=== PATIENT | female | born 1975 | race Hispanic/Latino ===

== ENCOUNTER 2019-04-13 09:30 | Outpatient (RCR) | payer OTHER, SELFPAY ==
--- NOTE | 2019-03-18 09:28 | ST.OPTN ---
Care Team Visit Care Team Role Provider Type Rigoberto Dodge MD Attending Provider Non-Staff Address: [address] [place] [address], [id number] RN HEMATOLOGY Treatment Note RN HEMATOLOGY Treatment Note Start: 04/16/18 16:50 Freq: Status: Active Protocol: Document 03/17/19 09:10 NAKIA (Rec: 03/17/19 09:28 NAKIA [email or web address]) Speech Pathology Treatment Note Session Time Visit Start Time 08:35 Visit Stop Time 09:27 Total Visit Minutes 52 Visit Information Visit Number 08/13 Plan of Care Dates 12/10/18 - 03/04/19 Insurance Information Self-Insured. L&I Claim # [id number] Setting Treatment Setting Outpatient Care Visit Type Note Type Progress Note Next Note Type Next Note Type Treatment Note General Information General Information 42-yr-old female suffered a concussion/TBI on 01/07/17 when she hit her head on the underside of a counter at work when standing up. The pt noticed swelling, headache and tingling of her extremities within 4 hours of hitting her head and went to [facility]. Imaging revealed no skull fracture or cranial bleeding. The pt has not received Speech Therapy services before now. She did undergo neurocognitive evaluation via [employer] as part of the pt's L&I Claim. Records have been requested. The pt c/o memory problems, word finding difficulties and reduced expressive languae skills especially with fatigue, slowed processing skills, as well as fatigue and chronic headache/pain. Prior to injury , the pt worked 40+ hours at the [employer] at [employer]. She is now only able to work only 20 hrs/wk (4 hrs/day) secondary to symptoms from injury. Subjective Identification Type Name Date of Other Identification Reconciled With Intake Sheet Observations/Patient Presentation Edna reported improvement in her memory and math skills and stated that she still struggles to have enough physical and mental energy to last the day. This is concerning to her as she is trying to increase her work day to 8 hrs. She also expressed concern and disappointment that she may not be able to achieve her goal of returning to school and earning a PhD. She became tearful as she expressed her concerns and her frustration with others telling her she is doing fine when she is has not yet reached her PLOF. 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 The pt will complete math tasks of moderate complexity to increase her ability to perform work-related and personal financial tasks. IMPROVING - CONTINUE GOAL 2. The pt will name 4 internal memory strategies to demonstrate understanding skilled education. GOAL MET 3. The pt will identify 3 compensatory strategies for use in functional tasks (e.g., maintain stamina, attention, recall, etc.) to demonstrate understanding of skilled education. GOAL MET 4. Using memory strategies, the pt will recall details about people in her functional environment (e.g., employees) with 90% accuracy. IMPROVING - CONTINUE GOAL 5. Pt will complete alternating and divided attention tasks of moderate complexity with 80% accuracy. IMPROVING - CONTINUE GOAL 6. Pt will complete visuospatial tasks of moderate complexity with 80% accuracy. IMPROVING - CONTINUE GOAL 7. NEW GOAL: Pt will verbalize understanding of SMART strategy for setting realistic goals to increase independence in redeveloping/ accomplishing personal goals in the presence of TBI. Tomographic Tech Goals 1. The pt will demonstrate immediate and delayed recall of 4-item lists/instructions with 90% accuracy to improve memory for functional tasks. IMPROVING - CONTINUE GOAL 2. The pt will employ compensatory strategies in her work environment in 3 self- chosen tasks with 80% accuracy , as measured by pt report and clinician judgment, to improve ability to complete employment responsibilities. GOAL MET 3. The pt will demonstrate expressive, receptive, and cognitive communication skills WFL to return to full-time employment. IMPROVING - CONTINUE GOAL 4. NEW GOAL: The pt will develop 3 personal/ professional goals using SMART strategy to increase independence of setting and attaining personal goals in the presence of TBI. Treatment Activities Provided education and counseling RE common standardized measurements of typical or normal functioning vs the pt's PLOF and personal goals; acceptance of factors around brain injury that are outside her control; strategies in identifying tangible realistic tasks that are within her control; and strategies for conserving energy to increase endurance throughout the work day. Edna identified 2 strategies that she does employ and 2 that she could employ to conserve energy and add small tasks into her day to slowly increase endurance and progress toward goals of returning to an 8-hr work day. Recommended resources (e.g., [employer] [place], university guidance counselors and ADA departments , etc.) for the pt to consult related to pursuing education with a brain injury. Initiated training of SMART goal- setting strategy. Edna identified tangible, realistic steps she could take right now (i.e., gathering information, applying for positions, etc.) to work toward and/or refine her professional and educational goals. Assessment Patient Response to Treatment Excellent Rehab Potential Excellent Impairments Identified Attention Cognitive-Linguistic Skills Expressive Language Memory - Short Term Memory - Working Problem Solving Receptive Language Additional Impairments Identified Compensatory strategies analysis; HEP review & modification as needed Progress Towards Goals Good Progress Assessment of Overall Progress Improving Assessment of Improvement Edna continues to make progress in treatment with good carryover to functional tasks. She also continues to be significantly impacted by physical and mental fatigue as she works hard to employ strategies learned in treatment. She is emotionally impacted by consequences of TBI, both within her own skillset and other people's interpretations and expectations of her abilities. Today she exhibited improved understanding of topics about which she was counseled and educated, as demonstrated by her ability to idenfify tangible steps and strategies she can take to further develop and progress toward personal goals. At start of the session she was tearful; at the end of the session she expressed excitement and motivation about her future, demonstrating improvement as a result of treatment. Continued skilled intervention is medically necessary to further progress the pt's cognitive communication skills and further train strategies in conserving energy and setting and achieving realistic steps toward returning to PLOF and full- time employment. Reviewed with Patient Goals Progress Being Made Home Exercise Program Patient/Caregiver Understanding Excellent Plan Amount of Therapy Recommended 1-2 Months Frequency of Treatment Twice a Week Length of Session 45 Minutes Treatment Emphasis Next Session Cont number recall with added distractors Therapeutic Contents Client Education Cognitive-Linguistic Training Home Exercise Program Provided Patient/Caregiver Instruction Home Exercise Program Plan of Care Questions/Concerns Therapy Recommendations Continue with Current Program
--- NOTE | 2019-03-18 15:55 | ST.OPTN ---
Care Team Visit Care Team Role Provider Type Rigoberto Dodge MD Attending Provider Non-Staff Address: [address] [place] [address], [id number] MIDDLE SCHOOL GUIDANCE COUNSELOR Treatment Note MIDDLE SCHOOL GUIDANCE COUNSELOR Treatment Note Start: 04/16/18 16:50 Freq: Status: Active Protocol: Document 03/17/19 09:10 NAKIA (Rec: 03/17/19 09:28 NAKIA [email or web address]) Speech Pathology Treatment Note Session Time Visit Start Time 08:35 Visit Stop Time 09:27 Total Visit Minutes 52 Visit Information Visit Number 08/13 Plan of Care Dates 03/17/19 - 06/10/19 Insurance Information Self-Insured. L&I Claim # [id number] Setting Treatment Setting Outpatient Care Visit Type Note Type Progress Note Next Note Type Next Note Type Treatment Note General Information General Information 42-yr-old female suffered a concussion/TBI on 01/07/17 when she hit her head on the underside of a counter at work when standing up. The pt noticed swelling, headache and tingling of her extremities within 4 hours of hitting her head and went to [facility]. Imaging revealed no skull fracture or cranial bleeding. The pt has not received Speech Therapy services before now. She did undergo neurocognitive evaluation via [employer] as part of the pt's L&I Claim. Records have been requested. The pt c/o memory problems, word finding difficulties and reduced expressive languae skills especially with fatigue, slowed processing skills, as well as fatigue and chronic headache/pain. Prior to injury , the pt worked 40+ hours at the [employer] at [employer]. She is now only able to work only 20 hrs/wk (4 hrs/day) secondary to symptoms from injury. Subjective Identification Type Name Date of Other Identification Reconciled With Intake Sheet Observations/Patient Presentation Edna reported improvement in her memory and math skills and stated that she still struggles to have enough physical and mental energy to last the day. This is concerning to her as she is trying to increase her work day to 8 hrs. She also expressed concern and disappointment that she may not be able to achieve her goal of returning to school and earning a PhD. She became tearful as she expressed her concerns and her frustration with others telling her she is doing fine when she is has not yet reached her PLOF. 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 The pt will complete math tasks of moderate complexity to increase her ability to perform work-related and personal financial tasks. IMPROVING - CONTINUE GOAL 2. The pt will name 4 internal memory strategies to demonstrate understanding skilled education. GOAL MET 3. The pt will identify 3 compensatory strategies for use in functional tasks (e.g., maintain stamina, attention, recall, etc.) to demonstrate understanding of skilled education. GOAL MET 4. Using memory strategies, the pt will recall details about people in her functional environment (e.g., employees) with 90% accuracy. IMPROVING - CONTINUE GOAL 5. Pt will complete alternating and divided attention tasks of moderate complexity with 80% accuracy. IMPROVING - CONTINUE GOAL 6. Pt will complete visuospatial tasks of moderate complexity with 80% accuracy. IMPROVING - CONTINUE GOAL 7. NEW GOAL: Pt will verbalize understanding of SMART strategy for setting realistic goals to increase independence in redeveloping/ accomplishing personal goals in the presence of TBI. Obstetrics Gyn Goals 1. The pt will demonstrate immediate and delayed recall of 4-item lists/instructions with 90% accuracy to improve memory for functional tasks. IMPROVING - CONTINUE GOAL 2. The pt will employ compensatory strategies in her work environment in 3 self- chosen tasks with 80% accuracy , as measured by pt report and clinician judgment, to improve ability to complete employment responsibilities. GOAL MET 3. The pt will demonstrate expressive, receptive, and cognitive communication skills WFL to return to full-time employment. IMPROVING - CONTINUE GOAL 4. NEW GOAL: The pt will develop 3 personal/ professional goals using SMART strategy to increase independence of setting and attaining personal goals in the presence of TBI. Treatment Activities Provided education and counseling RE common standardized measurements of typical or normal functioning vs the pt's PLOF and personal goals; acceptance of factors around brain injury that are outside her control; strategies in identifying tangible realistic tasks that are within her control; and strategies for conserving energy to increase endurance throughout the work day. Edna identified 2 strategies that she does employ and 2 that she could employ to conserve energy and add small tasks into her day to slowly increase endurance and progress toward goals of returning to an 8-hr work day. Recommended resources (e.g., [employer] [place], university guidance counselors and ADA departments , etc.) for the pt to consult related to pursuing education with a brain injury. Initiated training of SMART goal- setting strategy. Edna identified tangible, realistic steps she could take right now (i.e., gathering information, applying for positions, etc.) to work toward and/or refine her professional and educational goals. Assessment Patient Response to Treatment Excellent Rehab Potential Excellent Impairments Identified Attention Cognitive-Linguistic Skills Expressive Language Memory - Short Term Memory - Working Problem Solving Receptive Language Additional Impairments Identified Compensatory strategies analysis; HEP review & modification as needed Progress Towards Goals Good Progress Assessment of Overall Progress Improving Assessment of Improvement Edna continues to make progress in treatment with good carryover to functional tasks. She also continues to be significantly impacted by physical and mental fatigue as she works hard to employ strategies learned in treatment. She is emotionally impacted by consequences of TBI, both within her own skillset and other people's interpretations and expectations of her abilities. Today she exhibited improved understanding of topics about which she was counseled and educated, as demonstrated by her ability to idenfify tangible steps and strategies she can take to further develop and progress toward personal goals. At start of the session she was tearful; at the end of the session she expressed excitement and motivation about her future, demonstrating improvement as a result of treatment. Continued skilled intervention is medically necessary to further progress the pt's cognitive communication skills and further train strategies in conserving energy and setting and achieving realistic steps toward returning to PLOF and full- time employment. Reviewed with Patient Goals Progress Being Made Home Exercise Program Patient/Caregiver Understanding Excellent Plan Amount of Therapy Recommended 1-2 Months Frequency of Treatment Twice a Week Length of Session 45 Minutes Treatment Emphasis Next Session Cont number recall with added distractors Therapeutic Contents Client Education Cognitive-Linguistic Training Home Exercise Program Provided Patient/Caregiver Instruction Home Exercise Program Plan of Care Questions/Concerns Therapy Recommendations Continue with Current Program
--- NOTE | 2019-04-13 11:21 | ST.OPTN ---
Care Team Visit Care Team Role Provider Type Rigoberto Dodge MD Attending Provider Non-Staff Address: [address] [place] [address], [id number] STORE PLANNER Treatment Note STORE PLANNER Treatment Note Start: 04/16/18 16:50 Freq: Status: Active Protocol: Document 04/13/19 11:09 NAKIA (Rec: 04/13/19 11:21 NAKIA [email or web address]) Speech Pathology Treatment Note Session Time Visit Start Time 09:43 Visit Stop Time 10:17 Total Visit Minutes 34 Visit Information Visit Number 2 Plan of Care Dates 03/17/19 - 06/10/19 Insurance Information Self-Insured. L&I Claim # [id number] Setting Treatment Setting Outpatient Care Visit Type Note Type Progress Note Next Note Type Next Note Type Treatment Note General Information General Information 42-yr-old female suffered a concussion/TBI on 01/07/17 when she hit her head on the underside of a counter at work when standing up. The pt noticed swelling, headache and tingling of her extremities within 4 hours of hitting her head and went to [facility]. Imaging revealed no skull fracture or cranial bleeding. The pt has not received Speech Therapy services before now. She did undergo neurocognitive evaluation via [employer] as part of the pt's L&I Claim. Records have been requested. The pt c/o memory problems, word finding difficulties and reduced expressive languae skills especially with fatigue, slowed processing skills, as well as fatigue and chronic headache/pain. Prior to injury , the pt worked 40+ hours at the [employer] at [employer]. She is now only able to work only 20 hrs/wk (4 hrs/day) secondary to symptoms from injury. 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 Once arrived, she reported having met with a new Neurologist whose name she did not recall and who recommended she not advance work hours beyond 6/ day and recommended (re) evaluation for disability benefits. 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 The pt will complete math tasks of moderate complexity to increase her ability to perform work-related and personal financial tasks. IMPROVING - CONTINUE GOAL 2. The pt will name 4 internal memory strategies to demonstrate understanding skilled education. GOAL MET 3. The pt will identify 3 compensatory strategies for use in functional tasks (e.g., maintain stamina, attention, recall, etc.) to demonstrate understanding of skilled education. GOAL MET 4. Using memory strategies, the pt will recall details about people in her functional environment (e.g., employees) with 90% accuracy. IMPROVING - CONTINUE GOAL 5. Pt will complete alternating and divided attention tasks of moderate complexity with 80% accuracy. IMPROVING - CONTINUE GOAL 6. Pt will complete visuospatial tasks of moderate complexity with 80% accuracy. IMPROVING - CONTINUE GOAL 7. NEW GOAL: Pt will verbalize understanding of SMART strategy for setting realistic goals to increase independence in redeveloping/ accomplishing personal goals in the presence of TBI. Assisted Goals 1. The pt will demonstrate immediate and delayed recall of 4-item lists/instructions with 90% accuracy to improve memory for functional tasks. IMPROVING - CONTINUE GOAL 2. The pt will employ compensatory strategies in her work environment in 3 self- chosen tasks with 80% accuracy , as measured by pt report and clinician judgment, to improve ability to complete employment responsibilities. GOAL MET 3. The pt will demonstrate expressive, receptive, and cognitive communication skills WFL to return to full-time employment. IMPROVING - CONTINUE GOAL 4. NEW GOAL: The pt will develop 3 personal/ professional goals using SMART strategy to increase independence of setting and attaining personal goals in the presence of TBI. Treatment Activities Educated pt on current goals/ POC. Pt agreeable to working with another therapist in 2 wks while this STORE PLANNER is out of the clinic. Discussed discharge plan as pt 's benefits are drawing to a close at the end of the month. Introduced SMART goal development technique. She was familiar with this acronym and identified/explained each component successfully. Edna then identified 2 areas of functional abilities (reading comprehension/speed and physical fitness) that have not yet returned to PLOF and wrote 2 SMART goals, one for each target. Goals met standards of SMART technique. Agreed she will initiate action on each target and report progress at next session and will bring to next session at least one more SMART goal targeting professional and/or education pursuits. Assessment Patient Response to Treatment Excellent Rehab Potential Excellent Impairments Identified Attention Cognitive-Linguistic Skills Expressive Language Memory - Short Term Memory - Working Problem Solving Receptive Language Additional Impairments Identified Compensatory strategies analysis; HEP review & modification as needed Progress Towards Goals Good Progress Assessment of Overall Progress Improving Assessment of Improvement Edna is already knowledgable to SMART goal development technique and demonstrated ability to set goals according to each SMART component. She verbalized understanding of the importance of such a goal development skill in order to transition from skilled intervention to greater independence for continued rehabilitation progress. Edna continues to struggle with short-term memory and attention skills, which will continue to be targeted in tx and in HEP. Reviewed with Patient Goals Progress Being Made Home Exercise Program Patient/Caregiver Understanding Excellent Plan Amount of Therapy Recommended 1-2 Months Frequency of Treatment Twice a Week Length of Session 45 Minutes Treatment Emphasis Next Session Cont number recall with added distractors Therapeutic Contents Client Education Cognitive-Linguistic Training Home Exercise Program Provided Patient/Caregiver Instruction Home Exercise Program Plan of Care Questions/Concerns Therapy Recommendations Continue with Current Program
--- NOTE | 2019-06-17 14:03 | ST.OPDS ---
Care Team Visit Care Team Role Provider Type Rigoberto Dodge MD Attending Provider Non-Staff Address: [address] [place] [address], [id number] FILTERS ASSEMBLER Treatment Note FILTERS ASSEMBLER Treatment Note Start: 04/16/18 16:50 Freq: Status: Active Protocol: Document 06/17/19 14:01 NAKIA (Rec: 06/17/19 14:02 NAKIA [email or web address]) Speech Pathology Treatment Note Visit Information Plan of Care Dates 03/17/19 - 06/10/19 Insurance Information Self-Insured. L&I Claim # [id number] Setting Treatment Setting Outpatient Care Visit Type Note Type Discharge Summary General Information General Information 42-yr-old female suffered a concussion/TBI on 01/07/17 when she hit her head on the underside of a counter at work when standing up. The pt noticed swelling, headache and tingling of her extremities within 4 hours of hitting her head and went to [facility]. Imaging revealed no skull fracture or cranial bleeding. The pt has not received Speech Therapy services before now. She did undergo neurocognitive evaluation via [employer] as part of the pt's L&I Claim. Records have been requested. The pt c/o memory problems, word finding difficulties and reduced expressive languae skills especially with fatigue, slowed processing skills, as well as fatigue and chronic headache/pain. 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 She is now only able to work only 20 hrs/wk (4 hrs/day) secondary to symptoms from injury. Subjective Observations/Patient Presentation The pt was last seen 04/13/19. Pt is discharged d/t exhaustion of benefits. 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
== END 2019-06-23 11:17 | disposition home or self-care (01) ==
LOC: SP 09:30
PROVIDERS: Visit Provider Psychiatry & Neurology Neurology
DX: R41.9 Unspecified symptoms and signs involving cognitive functions and awareness (principal)
CPT/HCPCS: 92507; 96125; 97127